=== PATIENT | female | born 1950 | race Two or more races ===

== ENCOUNTER 2024-09-05 12:00 | Emergency (ER) | payer BC ==
[~2024-09-05] VITALS: Ht 152.4 cm; Wt 44.1 kg
[2024-09-05 13:21] VITALS: BP 120/70; PULSE 70; RESP 16; TEMP 98.1; O2SAT 99
[2024-09-05] MEDS ORDERED: AUG875T PO (14:27)
--- NOTE | 2024-09-05 14:27 | ED.PDOC ---
Musculoskeletal HPI Comments Low Pressure Firer number: [id number] 74-year-old female presents with a with a chief complaint of a possible infection to the right upper extremity located at right distal radius. Onto started two days ago after patient was scratched by her cat. Patient started taking leftover Keflex but reports minimal improvement. Patient denies fevers drainage from the affected side. Denies restrictions in range of motion Chief Complaint: Abrasion Time Seen by MD: 12:57 Primary Care Provider: KESHAV Reviewed Notes: Nurses Notes, Medications, Allergies Allergies: Coded Allergies: NO KNOWN ALLERGIES (Unverified , 09/05/24) Home Meds Active Scripts Amoxicillin & Pot Clavulanate (AUGMENTIN TABLET) 875 Mg Tb, 875 MG PO BID for 7 Days, #14 TAB 0 Refills Prov:NATALIE JONES PERSONNEL ANALYST 09/05/24 Information Source: Patient Mode of Arrival: Ambulatory All Other Systems: Reviewed and Negative (per hpi) Physical Exam General Appearance: No Apparent Distress, Normal HEENT: Normal ENT Inspection, Pharynx Normal, TMs Normal Neck: Full Range of Motion, Non-Tender, Normal, Normal Inspection Respiratory: Chest Non-Tender, Lungs Clear, No Accessory Muscle Use, No Respiratory Distress, Normal Breath Sounds Cardiovascular: No Edema, No JVD, No Murmur, No Gallop, Normal Peripheral Pulses, Regular Rate/Rhythm Breast Exam: Deferred Gastrointestinal: No Organomegaly, Non Tender, No Pulsatile Mass, Normal Bowel Sounds, Soft Genitalia: Deferred Pelvic: Deferred Rectal: Deferred Extremities: No calf tenderness, Normal capillary refill, Normal inspection, Normal range of motion, Non-tender, No pedal edema Musculoskeletal : Location: Right Extremity Location: Wrist (abrassion. erythematous. no dc. no ttp) Apperance: Normal Neurologic: Alert, double needle operator II-XII nml as Tested, No Motor Deficits, Normal Affect, Normal Mood, No Sensory Deficits Cerebellar Function: Normal Reflexes: Normal Skin: Dry, Normal Color, Warm Lymphatic: No Adenopathy Was a procedure done? Was a procedure done?: No Differential Diagnosis EXT Differential Diagnosis: Other X-Ray, Labs, Meds, VS Vital Signs Date Time Temp Pulse Resp B/P (MAP) Pulse Ox O2 Delivery O2 Flow Rate FiO2 09/05/24 13:21 98.1 70 16 120/70 (87) 99 98.1 09/05/24 13:21 70 16 99 Room Air 09/05/24 12:16 98.0 67 16 123/72 (89) 98 Current Medications Medications (Trade) Dose Ordered Sig/Julio Route Start Time Stop Time Status Last Admin Diphtheria/ Tetanus/Acell Pertussis (Boostrix T-Dap) 0.5 ml ONCE ONCE IM 09/05/24 14:30 09/05/24 14:50 DC 09/05/24 14:55 X-Ray, Labs, Meds, VS Comment Based on the history, exam, and test performed, there does not seem to be a retained foreign body, nerve injury, vascular injury, tendon injury, bone injury or foreign body. Wound appears clean. No evidence of purulent discharge. Doubtful for rabies as the is not a wild animal. No rabies vaccine given. tdap updated Wound cleaned in the ER with jet irrigation. Will let wound heal by secondary intention to decrease risk of abscess formation. Patient will be discharged home with prophylactic antibiotics. Will discharge home with Augmentin 875mg PO BID x 7days. Patient to [facility] or PCP in 2-3 days for wound re- check. Return to ER as needed. Time of 1ST Reevaluation: 14:00 Reevaluation 1ST: Improved Patient Education/Counseling: Diagnosis, Treatment Family Education/Counseling: Diagnosis, Treatment Departure 1 Departure Time of Disposition: 14:26 Impression: Primary Impression: Animal bite Disposition: 01 HOME / SELF CARE / HOMELESS Condition: Stable e-Prescriptions Amoxicillin & Pot Clavulanate (AUGMENTIN TABLET) 875 Mg Tb 875 MG PO BID for 7 Days, #14 TAB 0 Refills Prov: NATALIE JONES NP 09/05/24 Discharged With: Self Critical Care Note Critical Care Time?: No Stability Stability form required: No Heart Score Heart Score: Heart Score Response (Comments) Value History N/A 0 EKG N/A 0 Age N/A 0 Risk Factors N/A 0 Troponin N/A 0 Total 0 NATALIE JONES NP Sep 05, 2024 14:27
[2024-09-05] MEDS: TETANUS-DIPTH-ACEL PERTUSSIS 0.5ML SYR Tdap IM ONE (14:55)
== END 2024-09-05 15:06 | disposition home or self-care (01) ==
LOC: ER 12:00
DX: S60.511A Abrasion of right hand, initial encounter (principal); W55.03XA Scratched by cat, initial encounter; Y93.89 Activity, other specified; Y92.89 Other specified places as the place of occurrence of the external cause; Y99.8 Other external cause status
CPT/HCPCS: 90471; 90715